=== PATIENT | female | born 1960 | race Two or more races ===

== ENCOUNTER 2022-05-12 12:18 | Emergency (ER) | payer BC, OTHER ==
[~2022-05-12] VITALS: Ht 152.4 cm; Wt 58.2 kg
[2022-05-12 12:30] VITALS: BP 160/88
[2022-05-12] MEDS ORDERED: ibuprofen tablet 400 MG TABLET PO ONE (14:15)
[2022-05-12] MEDS ORDERED: acetaminophen 325mg tablet PO ONE (14:15)
== END 2022-05-12 14:30 | disposition home or self-care (01) ==
LOC: ER 12:19
DX: M53.3 Sacrococcygeal disorders, not elsewhere classified (principal)
CPT/HCPCS: 72220; 99284

== ENCOUNTER 2024-01-26 05:47 | Day surgery (SDC) | payer BC ==
[2024-01-18 14:40] LABS: BILIRUBIN,URINE NEGATIVE (Neg); CLARITY,URINE CLEAR (Clear); COLOR,URINE STRAW (Yellow); GLUCOSE, URINE NEGATIVE (Neg); KETONES,URINE NEGATIVE (Neg); LEUKOCYTE ESTERASE ,URINE NEGATIVE (Neg); NITRITES, URINE NEGATIVE (Neg); OCCULT BLOOD,URINE NEGATIVE (Neg); PH,URINE 7.5 (4.8-8.0); PROTEIN,URINE NEGATIVE (Neg); UROBILINOGEN,URINE 0.2 E.U/dL (0.2-1.0)
[2024-01-18 14:42] LABS: UA COLLECTION TYPE CLN CATCH MIDSTREAM
[2024-01-18 14:44] LABS: BASOPHILS # (AUTO) 0.1 X10'3 (0-0.2); BASOPHILS % (AUTO) 1.5 % (0-1); EOSINOPHILS # (AUTO) 0.1 X10'3 (0-0.9); EOSINOPHILS % (AUTO) 1.8 % (0-6); LYMPHOCYTES # (AUTO) 1.7 X10'3 (1.1-4.8); LYMPHOCYTES % (AUTO) 26.8 % (21-51); MEAN CORPUSCULAR HEMOGLOBIN 29.4 PG (27.0-31.0); MEAN CORPUSCULAR HGB CONC 33.9 g/dL (33.0-36.5); MEAN PLATELET VOLUME 7.5 FL (7.4-10.4); MONOCYTES # (AUTO) 0.6 X10'3 (0-0.9); MONOCYTES % (AUTO) 8.9 % (2-12); NEUTROPHILS # (AUTO) 3.8 X10'3 (1.8-7.7); PRE OP HEMATOCRIT 42.1 % (35.0-45.0); PRE OP HEMOGLOBIN 14.3 g/dL (12.0-16.0); PRE OP PLATELET COUNT 298 X10'3 (140-440); PRE OP WHITE BLOOD COUNT 6.3 10'3 (4.8-10.8); RED BLOOD COUNT 4.84 X10'6 (4.20-5.60); RED CELL DISTRIBUTION WIDTH 14.3 % (11.5-14.5)
[2024-01-18 14:54] LABS: ALBUMIN 3.8 G/DL (3.4-5.0); ALKALINE PHOSPHATASE 71 IU/L (46-116); BLOOD UREA NITROGEN 11 MG/DL (7-18); BUN/CREATININE RATIO 13.9 (10.0-20.0); CHLORIDE 106 MMOL/L (99-107); CREATININE 0.79 MG/DL (0.40-0.90); PRE OP ALT 55 U/L (30-65); PRE OP ANION GAP 8 (8-16); PRE OP AST 28 U/L (10-37); PRE OP BILIRUB, TOTAL 1.7 MG/DL (0.0-1.0); PRE OP GLUCOSE 117 MG/DL (70-104); PRE OP POTASSIUM 3.5 MMOL/L (3.4-5.1); PRE OP SODIUM 143 MMOL/L (135-145); TOTAL CARBON DIOXIDE 29.2 MMOL/L (24-32); TOTAL PROTEIN 7.6 G/DL (6.4-8.2); eGFR 74 ML/MIN
[~2024-01-26] VITALS: Ht 152.4 cm; Wt 58.4 kg
[2024-01-26] VITALS (10 sets, daily range): BP systolic 113–152; BP diastolic 68–85; PULSE 58–76; RESP 10–16; TEMP 98.1; O2SAT 10–100
[2024-01-26] MEDS: cefazolin 2gm/D5W 100mL 100 ML IV ONE (05:30)
[~2024-01-26 05:47] MED LIST: AMLO-382 PO; ATOR10TA70 PO; BRIM5DRO32 EACHEYE; DORZ10DR10 EACHEYE; LATA5DRO EACHEYE; PANT40TA54 PO; SOLI5TAB8 PO
[2024-01-26] MEDS: famotidine 20mg tablet PO ONE (06:31)
[2024-01-26] MEDS: ringers solution, lacted 1,000 ML IV SCH (06:32)
[2024-01-26] MEDS ORDERED: proCHLORperazine 10 MG/2 ml inj IV PRN (07:05)
[2024-01-26] MEDS ORDERED: ondansetron/PF 4mg/2ml inj IV PRN (07:05)
[2024-01-26] MEDS ORDERED: morphine 4 MG/ML inj SYRINge IV PRN (07:05)
[2024-01-26] MEDS ORDERED: ringers solution, lacted 1,000 ML IV SCH (07:05)
[2024-01-26] MEDS ORDERED: meperidine/PF 25mg/ml syringe IV PRN ×3 (07:05)
[2024-01-26] MEDS ORDERED: morphine 2 MG/ML inj. syringe IV PRN (07:05)
[2024-01-26] MEDS ORDERED: cloNIDine hcl/PF 100mcg/ml inj ONE (07:07)
[2024-01-26] MEDS ORDERED: fentaNYL/PF 50MCG/1 ML 2ML syringe ONE (07:11)
[2024-01-26] MEDS ORDERED: midazolam 1 mg/ML 2ml injection ONE (07:12)
[2024-01-26] MEDS ORDERED: BUPIVAcaine 2.5mg/ml inj 50ml vial (contains preservative) ONE (07:14)
[2024-01-26] MEDS ORDERED: sevoflurane 250ml liquid IH ONE (07:21)
[2024-01-26] MEDS: bacitracin 15gm ointment TP ONE (08:26)
[2024-01-26] MEDS ORDERED: propofol inj 20 ML IV ONE (09:27)
[2024-01-26] MEDS ORDERED: dexamethasone sod phosphate 4mg/ml inj. ONE (09:28)
[2024-01-26] MEDS ORDERED: ROPIVAcaine 0.5% (5mg/ml) 30ml vial ONE (09:28)
== END 2024-01-26 10:25 | disposition home or self-care (01) ==
LOC: PAS 05:47
PROVIDERS: ATTEND Podiatrist Foot & Ankle Surgery
DX: M62.462 Contracture of muscle, left lower leg (principal); M20.12 Hallux valgus (acquired), left foot; G89.18 Other acute postprocedural pain; I10 Essential (primary) hypertension; E78.5 Hyperlipidemia, unspecified; K21.9 Gastro-esophageal reflux disease without esophagitis; G43.909 Migraine, unspecified, not intractable, without status migrainosus; H40.9 Unspecified glaucoma; Z79.82 Long term (current) use of aspirin; Z79.891 Long term (current) use of opiate analgesic; Z79.899 Other long term (current) drug therapy; Z90.710 Acquired absence of both cervix and uterus; Z98.890 Other specified postprocedural states
CPT/HCPCS: 27687; 28300; 28740; 36415; 64447; 64450; 73620; 80053; 81003; 82948; 85025; 93005; A6222; A6223; C1713; C1776; J0690; J0735; J1100; J2250; J2405; J2704; J2795; J3010; J3490; J7030; J7120; Z7506; Z7508; Z7512; 76000; A4215; A4618; A6449; A7000